=== PATIENT | male | born 1965 | race Caucasian/White ===

== ENCOUNTER 2018-11-04 22:11 | Observation (INO) ==
[2018-11-04 22:59] LABS: Basophils # 0.1 K/mcL (0.0-0.2); Basophils % 0.6 %; Eosinophils # 0.5 K/mcL (0.0-0.6); Eosinophils % 4.7 %; Hematocrit 44.5 % (37.5-50.1); Hemoglobin 15.7 g/dL (12.9-16.9); Immature Granulocytes % 0.3 % (0-4); Lymphocytes # 2.6 K/mcL (0.6-4.6); Lymphocytes % 26.3 %; Mean Corpuscular HGB Conc 35.3 g/dL (31.6-35.5); Mean Corpuscular Hemoglobin 32.4 pg (28.0-33.3); Mean Corpuscular Volume 91.8 fL (83.0-100.0); Mean Platelet Volume 10.9 fL (9.4-12.4); Monocytes # 1.1 K/mcL (0.0-1.3); Monocytes % 11.4 %; Neutrophils # 5.6 K/mcL (1.6-8.9); Platelet Count 177 K/mcL (140-400); Red Blood Count 4.85 M/mcL (4.19-5.50); Segmented Neutrophils % 56.7 %
[2018-11-04] MEDS ORDERED: Ipratropium/Albuterol Neb 3 ML IH ONE (23:39)
--- NOTE | 2018-11-04 23:42 | Emergency Department Note ---
Disposition Clinical Impression: SOB (shortness of breath), PVC (premature ventricular contraction), Fatigue Disposition: Admitted As Inpatient Condition: Good Forms: ED Satisfaction Letter Time of Disposition: 00:35 Arrhythmia/Palpitations HPI - General Chief Complaint: ED Arrhythmia/Palpitations Stated Complaint: heart palpatations macy Time Seen by Provider: 11/04/18 23:19 Source: patient Limitations: no limitations Nursing Notes Reviewed: Yes Vital Signs Reviewed: Yes - History of Present Illness HPI Narrative: 53-year-old male in presented to the emergency room for shortness of breath and palpitations. States he was out having dinner this evening and did not feel well. States he started feeling shortness of breath. [place] like he could not catch his breath at times. Never really had any true chest pain. He has no coronary history. He states he has been fatigued for the past week or so. Has not felt himself. He denies any fevers. He does admit to a slight cough. No lower leg pain or swelling. No history of DVT or PE. - Related Data Allergies Allergy/AdvReac Type Severity Reaction Status Date / Time No Known Allergies Allergy Verified 11/04/18 22:24 All systems ED: reviewed and negative except as stated. Constitutional: Reports: as per HPI, weakness Eyes: Reports: as per HPI ENT ED: Reports: as per HPI Cardiovascular: Reports: chest pain, palpitations, dyspnea on exertion Respiratory: Reports: cough, dyspnea Gastrointestinal: Reports: as per HPI Genitourinary: Reports: as per HPI Musculoskeletal: Reports: as per HPI Integumentary: Reports: as per HPI Neurological: Reports: as per HPI Psychiatric: Reports: as per HPI Endocrine: Reports: fatigue Hematological/Lymphatic: Reports: as per HPI Allergic/Immunologic: Reports: as per HPI Past Medical History - Past Medical History Medical history: Reports: asthma, hyperlipidemia Psychiatric history: Reports: anxiety - Social History Smoking Status: Never smoker Alcohol use: Reports: occasionally Drug use: Reports: none Physical Exam HEENT: Head atraumatic normocephalic. Pharynx clear with no exudates. Oral mucosa moist. Uvula midline. TMs clear bilaterally. Trachea midline. No lymphadenopathy. Heart: Regular rate and rhythm. Normal S1 and S2. No gallops, rubs, or murmurs. Lungs: Patient has some wheezing heard in the right lower lobe. Good air exchange. Abdomen: Soft nontender nondistended. Positive bowel sounds. No peritoneal signs. Extremities: No evidence of cyanosis clubbing or edema. Neuro: Cranial nerves II through XII grossly intact. No focal motor or sensory deficits. Speech is clear. Skin: Normal color. dry. Psych: normal mentation. - General Limitations: no limitations General appearance: alert Course Vital Signs Temperature 97.9 F 11/04/18 22:22 Pulse Rate 82 11/04/18 22:22 Respiratory Rate 21 11/04/18 22:22 Blood Pressure 125/83 11/04/18 22:22 O2 Sat by Pulse Oximetry 96 11/04/18 22:22 Temperature 97.9 F 11/04/18 23:15 Pulse Rate 82 11/04/18 23:15 Respiratory Rate 21 11/04/18 23:15 Blood Pressure 125/83 11/04/18 23:15 O2 Sat by Pulse Oximetry 96 11/04/18 23:15 Oxygen Delivery Oxygen Delivery Room Air Arrhythmia/Palpitations - MDM Narrative Medical decision making narrative: In review of the patient's workup everything came back unremarkable. Based on the story we will admit him to the hospital for cardiac evaluation and workup. I feel he would benefit from seeing cardiology. Possible stress test and I feel the need for this as he describes himself being extremely fatigued with this increasing dyspnea and states he just has not felt well. He states others as described him as looking yang in color. - Medical Records Medical records reviewed: Yes I reviewed the patient's medical records. - Lab Data Lab results reviewed: Yes I reviewed the patient's lab results. Result diagrams: 11/04/18 22:44 11/04/18 22:44 Lab Results 11/04/18 11/04/18 11/04/18 Range/Units 22:44 22:44 22:44 WBC 9.8 (4.3-11.1) K/mcL RBC 4.85 (4.19-5.50) M/mcL Hgb 15.7 (12.9-16.9) g/dL Hct 44.5 (37.5-50.1) % MCV 91.8 (83.0-100.0) fL MCH 32.4 (28.0-33.3) pg MCHC 35.3 (31.6-35.5) g/dL RDW 12.0 (11.5-14.5) % Plt Count 177 (140-400) K/mcL MPV 10.9 (9.4-12.4) fL Immature Gran % 0.3 (0-4) % Seg Neutrophils % 56.7 % Lymphocytes % 26.3 % Monocytes % 11.4 % Eosinophils % 4.7 % Basophils % 0.6 % Neutrophils # 5.6 (1.6-8.9) K/mcL Lymphocytes # 2.6 (0.6-4.6) K/mcL Monocytes # 1.1 (0.0-1.3) K/mcL Eosinophils # 0.5 (0.0-0.6) K/mcL Basophils # 0.1 (0.0-0.2) K/mcL Sodium 141 (136-145) mEq/L Potassium 3.7 (3.5-5.1) mEq/L Chloride 105 (98-107) mEq/L Carbon Dioxide 25 (23-29) mEq/L BUN 17 (6-20) mg/dL Creatinine 1.22 (0.70-1.30) mg/dL Est GFR ( Amer) > 60 (> 60) Est GFR (Non-Af Amer) > 60 (> 60) BUN/Creatinine Ratio 14 (6-26) Glucose 96 (70-105) mg/dL Calculated Osmolality 293 (280-300) Lactic Acid 1.7 (0.5-2.2) mmol/L Calcium 9.4 (8.6-10.3) mg/dL Troponin I < 0.03 (< 0.04) ng/mL B-Natriuretic Peptide (Less than 100) pg/mL TSH 4.097 (0.340-5.600) mcIU/mL 11/04/18 Range/Units 22:44 WBC (4.3-11.1) K/mcL RBC (4.19-5.50) M/mcL Hgb (12.9-16.9) g/dL Hct (37.5-50.1) % MCV (83.0-100.0) fL MCH (28.0-33.3) pg MCHC (31.6-35.5) g/dL RDW (11.5-14.5) % Plt Count (140-400) K/mcL MPV (9.4-12.4) fL Immature Gran % (0-4) % Seg Neutrophils % % Lymphocytes % % Monocytes % % Eosinophils % % Basophils % % Neutrophils # (1.6-8.9) K/mcL Lymphocytes # (0.6-4.6) K/mcL Monocytes # (0.0-1.3) K/mcL Eosinophils # (0.0-0.6) K/mcL Basophils # (0.0-0.2) K/mcL Sodium (136-145) mEq/L Potassium (3.5-5.1) mEq/L Chloride (98-107) mEq/L Carbon Dioxide (23-29) mEq/L BUN (6-20) mg/dL Creatinine (0.70-1.30) mg/dL Est GFR ( Amer) (> 60) Est GFR (Non-Af Amer) (> 60) BUN/Creatinine Ratio (6-26) Glucose (70-105) mg/dL Calculated Osmolality (280-300) Lactic Acid (0.5-2.2) mmol/L Calcium (8.6-10.3) mg/dL Troponin I (< 0.04) ng/mL B-Natriuretic Peptide 57 (Less than 100) pg/mL TSH (0.340-5.600) mcIU/mL - Radiology Data Radiology results reviewed: Yes I reviewed the patient's radiology results. - EKG Data EKG attestation: Yes I reviewed and interpreted this EKG. EKG results narrative: EKG shows a rate of 80. Normal sinus rhythm. Left axis deviation. [place] interval 143. QRS 94. QTC 412. No signs of acute ischemia. There is 1 PVC present.
[2018-11-04 23:58] LABS: Chloride 105 mEq/L (98-107); Potassium 3.7 mEq/L (3.5-5.1); Sodium 141 mEq/L (136-145)
[2018-11-04 23:59] LABS: BUN/Creatinine Ratio 14 (6-26); Blood Urea Nitrogen 17 mg/dL (6-20); Calcium 9.4 mg/dL (8.6-10.3); Carbon Dioxide 25 mEq/L (23-29); Glucose 96 mg/dL (70-105); Osmolality,Calculated 293 (280-300); Thyroid Stimulating Hormone 4.097 mcIU/mL (0.340-5.600); Troponin I < 0.03 ng/mL (< 0.04); eGFR For Non-African Americans > 60 (> 60)
[2018-11-05] MEDS ORDERED: Aspirin 325 MG TABLET PO ONE (00:31)
[2018-11-05] MEDS ORDERED: Acetaminophen 325 MG TABLET PO PRN (01:54)
[2018-11-05] MEDS ORDERED: *HR* HYDROcodone/Acet 5/325 mg TABLET PO PRN (01:54)
[2018-11-05] MEDS ORDERED: Naloxone 0.4 MG/ML INJ IVP PRN (01:54)
[2018-11-05] MEDS ORDERED: *HR* Morphine 2 MG/ML SYRINGE IVP PRN (02:49)
[2018-11-05] MEDS ORDERED: Nitroglycerin 0.4 MG TAB.SUBL SL PRN (02:50)
[2018-11-05] MEDS ORDERED: GI Cocktail 40 ML EACH PO ONE (02:50)
--- NOTE | 2018-11-05 03:01 | Internal Med History&Physical ---
Date of Encounter: 11/05/18 Time of Encounter: 01:00 Internal Medicine - H&P: HPI Chief complaint: Heart Palpitations/SOB Admitted From: Emergency Dept Plans for Post Hospital Care: Home History of present illness: Mr. Milan is a 53 year old male w/PMH of asthma, HLD, and anxiety/depression presents from the ED w/CC of heart palpitations and SOB that began last night at approximately 5 pm following dinner. Pt. reports that for the past several weeks he has been unusually tired and generally weak. No alleviating or aggravating factors. Patient states he felt flutter in his chest during event tonight but denies any diaphoresis, nausea, or vomiting. Patient states he used his rescue inhaler which helped briefly. Patient reports being on a statin since age 32 and had a stress test at the age of 42 which was unremarkable. Pt. reports feeling of acid reflux recently but denies taking a PPI. Denies recent cardiac workup, cardiac history, history of DVT or PE, recent illness, fever, chills, nausea, vomiting, changes in vision, headache, unusual bleeding, abdominal pain, cough, chest congestion, diarrhea, constipation, dizziness, lightheadedness, numbness, tingling, pre-syncope, or syncope. Past Med Surg Social Fam HX - Past Medical History Source: patient, old records reviewed Medical history: asthma, hyperlipidemia Psychiatric history: anxiety, depression - Social History Smoking Status: Never smoker Smokeless Tobacco Status: No Alcohol use: occasionally Drug use: none Occupational status: employed Current living situation: Home, With Family Activity Level: Independent ambulation, Very active Recent Out of Country Travel Within the Last 8 Weeks: No Exposure or Possible Exposure to Illness During Travel: No - Family History Grandfather Race: Family Member Ethnicity: Non- Living Status: Age at : 80 Cause of : [place] Hx Family Cardiac Disorders: Yes ([place]) Grandmother Race: Family Member Ethnicity: Non- Living Status: Age at : 80 Cause of : CVA Hx Family Cardiac Disorders: Yes (CVA) Hx Family Neurologic Disorders: Yes (CVA) Father Race: Family Member Ethnicity: Non- Living Status: Still Living Hx Family Cardiac Disorders: Yes (HLD, HTN) Hx Family Cancer: Yes (Prostate cancer, melanoma) Mother Race: Family Member Ethnicity: Non- Living Status: Still Living Hx Family Cardiac Disorders: Yes (HLD, HTN) Brother Race: Family Member Ethnicity: Non- Living Status: Still Living Hx Family Medical Disorders: No Sister Race: Family Member Ethnicity: Non- Living Status: Still Living Hx Family Medical Disorders: No Internal Medicine - H&P: Meds Albuterol Sulfate 11/05/18 [History] Alprazolam [Xanax] 2 mg PO PRN 11/05/18 [History] Escitalopram [Lexapro] 20 mg PO DAILY 11/05/18 [History] Fluticasone/Salmeterol [Advair 250-50 Diskus] 1 each IH 11/05/18 [History] Montelukast [Singulair] 10 mg PO DAILY 11/05/18 [History] Rosuvastatin Calcium [Crestor] 10 mg PO DAILY 11/05/18 [History] Vitamin D 5,000 unit PO DAILY 11/05/18 [History] Allergy/AdvReac Type Severity Reaction Status Date / Time No Known Allergies Allergy Verified 11/04/18 22:24 All Systems PM: A 10-system review of systems was performed and is negative for pertinent findings except as documented above in the HPI. - Constitutional Constitutional: as per HPI, fatigue, weakness, no chills, no fever(s), no night sweats - EENT Eyes: no change in vision, no discharge, no pain, no photophobia Ears: no ear discharge, no ear pain, no tinnitus Nose, mouth and throat: no dysphagia, no nasal discharge, no neck pain, no sore throat - Breasts Breasts: as per HPI - Cardiovascular Cardiovascular ROS IM: as per HPI, dyspnea, dyspnea on exertion, irregular heart rhythm, palpitations, no chest pain, no diaphoresis, no lightheadedness, no syncope - Respiratory Respiratory: as per HPI, dyspnea, dyspnea on exertion, no cough, no wheezing, no excessive phlegm production - Gastrointestinal Gastrointestinal: as per HPI, heartburn, no abdominal pain, no diarrhea, no hematemesis, no hematochezia, no melena, no nausea, no vomiting - Genitourinary Genitourinary ROS male: as per HPI - Musculoskeletal Musculoskeletal ROS IM: no numbness, no tingling - Integumentary Integumentary IM: no rash, no unusual bruising - Neurological Neurological ROS: as per HPI, weakness, no confusion, no convulsions, no focal weakness, no numbness, no tingling, no tremor(s) - Psychiatric Psychiatric: as per HPI - Endocrine Endocrine IM: as per HPI - Hematologic/Lymphatic Hematologic/Lymphatic: no easy bruising - Allergic/Immunologic Allergic/Immunologic: as per HPI - Constitutional Vitals: Temp Pulse Resp BP Pulse Ox 98.2 F 60 16 115/77 94 11/05/18 02:47 11/05/18 02:47 11/05/18 02:47 11/05/18 02:47 11/05/18 02:47 General appearance: Present: cooperative, A&O X 3, pleasant, no acute distress, obese, answers questions appropriately Exam: Patient examined at bedside. Patient resting in bed and in no apparent distr ess. Patient reports occasional fluttering in chest and generalized feeling of fatigue and weakness. Denies actual chest pain, SOB, or any other symptoms/complaints at this time. VS: 97.9F temp, HR 60, RR 21, BP 125/83, SpO2 97% on RA. - Head Head exam: Present: atraumatic, normocephalic - Eye Eye exam: Present: PERRL, conjuntiva pink, sclera anicteric Pupils: Present: PERRL - ENT ENT exam: Present: normal exam - Neck Neck exam general surgery: Present: normal inspection, supple, trachea midline. Absent: lymphadenopathy - Respiratory Respiratory exam: Present: CTAB. Absent: accessory muscle use, rales, rhonchi, wheezes - Cardiovascular Cardiovascular exam: Present: RRR, +S1, +S2. Absent: diastolic murmur, gallop, rubs, systolic murmur - GI/Abdominal GI/Abdominal exam: Present: normal bowel sounds, soft, no peritoneal signs. Absent: distended, tenderness - Rectal Rectal exam: Present: deferred - Additional comments: exam deferred. - Extremities Exam Extremities exam: Present: warm, radial pulses palpable and symmetrical. Absent: calf tenderness, cyanotic, pedal edema - Back Exam Back exam: Present: normal inspection - Neurological Exam Neurological exam: Present: alert, CN II-XII intact, oriented X3, no focal deficits. Absent: pronater drift, facial droop, speech deficit - Psychiatric Psychiatric exam: Present: normal affect, normal mood - Skin Skin exam: Present: dry, intact Internal Med - H&P Results - Labs CBC & Chem 7: 11/04/18 22:44 11/04/18 22:44 Labs: Short CBC 11/04/18 Range/Units 22:44 WBC 9.8 (4.3-11.1) K/mcL Hgb 15.7 (12.9-16.9) g/dL Hct 44.5 (37.5-50.1) % Plt Count 177 (140-400) K/mcL Neutrophils # 5.6 (1.6-8.9) K/mcL BMP 11/04/18 22:44 Sodium 141 Potassium 3.7 Chloride 105 Carbon Dioxide 25 BUN 17 Creatinine 1.22 Glucose 96 Calcium 9.4 Cardiac Enzymes 11/04/18 Range/Units 22:44 Troponin I < 0.03 (< 0.04) ng/mL - Impressions ITS Impressions Chest X-Ray 11/04/18 22:24 IMPRESSION: Cardiomegaly, otherwise, no acute abnormality seen in the chest D/ / Ant Zimmerman MD / Atn Zimmerman MD Interpreting Provider: Ant Zimmerman MD - Diagnostic Studies Chest x-ray Additional comments: Impressions Chest X-Ray 11/04/18 22:24 IMPRESSION: Cardiomegaly, otherwise, no acute abnormality seen in the chest D/ / Ant Zimmerman MD / Ant Zimmerman MD Interpreting Provider: Ant Zimmerman MD - Assessment and plan (1) Heart palpitations Current Visit: Yes Status: Acute Assessment and plan: Pt. reports he can feel a flutter in his chest occasionally and that heart palpitations and SOB began last night at approximately 5 pm following dinner. Pt. reports that for the past several weeks he has been unusually tired and generally weak. Patient states he felt flutter in his chest during event tonight but denies any diaphoresis, nausea, or vomiting. Patient states he used his rescue inhaler which helped briefly. Patient reports being on a statin since age 32 and had a stress test at the age of 42 which was unremarkable. No diagnosed hx of atrial flutter or Afib. CXR shows cardiomegaly. EKG shows sinus rhythm with occasional ventricular premature complexes and possible left atrial enlargement. Cardiac monitoring. ASA. Echocardiogram. Initial troponin <0.03. Trending. 80 mg Lipitor ONCE. SL nitro PRN. IVP morphine ordered for CP. NPO since admission for exercise stress test later today if troponins remain WNL. Discussed doing stress test today w/pt. who is amenable and wishes to proceed. Lipid panel in a.m. labs. Pt. is high risk for cardiac event and further morbidity based on current sx, generalized weakness for the past several weeks that has become progressively worse, hx of CAD since the age of 32, cardiomegaly of unknown etiology as seen on CXR, familial hx of CAD and [place]/CVA; and risk factors of HLD and obesity. Observation. (2) PVC (premature ventricular contraction) Current Visit: Yes Status: Acute Assessment and plan: Acute PVCs. Pt. reports he can feel a flutter in his chest occasionally. No diagnosed hx of atrial flutter or Afib. CXR shows cardiomegaly. EKG shows sinus rhythm with occasional ventricular premature complexes and possible left atrial enlargement. Cardiac monitoring. ASA. Echocardiogram. (3) Generalized weakness Current Visit: Yes Status: Acute Assessment and plan: Acute on chronic generalized weakness for the past several weeks that the pt. reports as worsening. States he always feels tired. CXR shows cardiomegaly. No recent cardiac w/u. Echocardiogram to assess for EF. Falls precautions and up with assist. (4) SOB (shortness of breath) Current Visit: Yes Status: Acute Assessment and plan: Acute SOB accompanying heart palpitations. Supplemental O2 w/titration and SpO2 monitoring PRN. Continue pts. inhalers for asthma once verified. If breathing txs indicated, use Xopenex d/t pts. palpitations/PVCs. (5) HLD (hyperlipidemia) Current Visit: Yes Status: Chronic Assessment and plan: Hx of chronic HLD. Lipid panel in a.m. labs. 80 mg Lipitor ONCE d/t current cardiac sx. Continue pts. Crestor on Sunday. Pt. reports he has been on a statin since the age of 32. Qualifiers: Hyperlipidemia type: pure hypercholesterolemia Qualified Code(s): E78.00 - Pure hypercholesterolemia, unspecified; E78.0 - Pure hypercholesterolemia (6) Asthma Current Visit: Yes Status: Chronic Assessment and plan: Hx of chronic asthma that is mild and intermittent. Continue pts. inhalers once confirmed. If pt. requires breathing txs for SOB, Xopenex to be ordered d/t pts. current palpitations and PVCs. Qualifiers: Asthma severity: mild Asthma persistence: intermittent Asthma complication type: uncomplicated Qualified Code(s): J45.20 - Mild intermittent asthma, uncomplicated (7) Anxiety and depression Current Visit: Yes Status: Chronic Assessment and plan: Hx of chronic anxiety and depression. Continue pts. Lexapro. Pt. states he takes his Xanax PRN for symptoms. Will continue as well once confirmed. (8) DVT prophylaxis Current Visit: Yes Status: Acute Assessment and plan: Heparin 5,000 units SQ Q8HR for DVT prophylaxis. Monitor pt. for signs of bleeding. - Time Spent With Patient Total time spent is greater than 50% in coordination of care (as documented) at patient's floor/unit and/or counseling patient: Greater than 35 minutes
[2018-11-05 06:01] LABS: Basophils # 0.1 K/mcL (0.0-0.2); Basophils % 0.7 %; Eosinophils # 0.4 K/mcL (0.0-0.6); Eosinophils % 6.4 %; Hematocrit 42.7 % (37.5-50.1); Hemoglobin 14.9 g/dL (12.9-16.9); Immature Granulocytes % 0.3 % (0-4); Lymphocytes # 2.4 K/mcL (0.6-4.6); Lymphocytes % 34.4 %; Mean Corpuscular HGB Conc 34.9 g/dL (31.6-35.5); Mean Corpuscular Hemoglobin 32.2 pg (28.0-33.3); Mean Corpuscular Volume 92.2 fL (83.0-100.0); Mean Platelet Volume 10.7 fL (9.4-12.4); Monocytes # 0.7 K/mcL (0.0-1.3); Monocytes % 10.6 %; Neutrophils # 3.3 K/mcL (1.6-8.9); Platelet Count 151 K/mcL (140-400); Red Blood Count 4.63 M/mcL (4.19-5.50); Red Cell Distribution Width 12.3 % (11.5-14.5); Segmented Neutrophils % 47.6 %
[2018-11-05] MEDS: *HR* Heparin 5,000 UNIT/ML VIAL SQ SCH ×3 (06:02→15:16)
[2018-11-05 06:22] LABS: Alanine Aminotransferase 30 Units/L (7-52); Albumin/Globulin Ratio 1.8 (1.1-2.2); Alkaline Phosphatase 51 Units/L (34-104); Aspartate Amino Transferase 19 Units/L (13-39); BUN/Creatinine Ratio 17 (6-26); Bilirubin,Total 0.5 mg/dL (0.3-1.0); Blood Urea Nitrogen 18 mg/dL (6-20); Carbon Dioxide 27 mEq/L (23-29); Chloride 106 mEq/L (98-107); Globulin 2.2 g/dL (2.4-3.5); Glucose 88 mg/dL (70-105); Magnesium 2.1 mg/dL (1.6-2.6); Osmolality,Calculated 289 (280-300); Potassium 3.9 mEq/L (3.5-5.1); Sodium 139 mEq/L (136-145); Total Protein 6.2 g/dL (6.4-8.9); Triglycerides 216 mg/dL (< 150); eGFR For Non-African Americans > 60 (> 60)
[2018-11-05 06:23] LABS: Chol/HDL Ratio 3.3 (0-4.9); Cholesterol 176 mg/dL (< 200); HDL Cholesterol 53 mg/dL (40-59); LDL Cholesterol,Calculated 80 mg/dL (0-99)
[2018-11-05 06:44] LABS: Estimated Average Glucose 114 mg/dl; Hemoglobin A1C 5.6 %
[2018-11-05] MEDS ORDERED: Cholecalciferol (D-3) 1,000 UNIT TABLET PO SCH (09:00)
[2018-11-05] MEDS ORDERED: Aspirin Enteric Coated 81 MG Tablet PO SCH (09:00)
[2018-11-05 16:50] VITALS: BP 144/96
[2018-11-05] MEDS ORDERED: Isovue-370 500 ML INFUS..BTL IVP ONE (17:07)
--- NOTE | 2018-11-05 17:55 | Electrocardiograph Report ---
[address] [place], [place] [address] Test Date: 2018-11-04 Pat Name: Joseph Milan Department: 104 Room: [facility] Gender: M [employer] Operator Head: : 1965 Requested By: Michael French Order Number: [id number] Reading MD: Linda Ruiz Measurements Intervals [place] Rate: 80 P: 52 [place]: 143 QRS: 1 QRSD: 94 T: 30 QT: 375 QTc: 412 Interpretive Statements SINUS RHYTHM WITH OCCASIONAL VENTRICULAR PREMATURE COMPLEXES POSSIBLE LEFT ATRIAL ENLARGEMENT Electronically Signed On 11-05-2018 17:53:18 EST by Linda Ruiz
--- NOTE | 2018-11-05 18:07 | Discharge Summary ---
Orders not resulted at time of discharge: Pending orders 11/05/18 05:41 NM janna perf SPECT multi [NM] Routine 11/06/18 04:00 Complete Blood Count [HEME] AM 0400 Comprehensive Metabolic Panel AM 0400 11/07/18 04:00 Complete Blood Count [HEME] AM 0400 Comprehensive Metabolic Panel AM 0400 Date of Encounter: 11/05/18 Time of Encounter: 11:00 - Discharge Diagnosis (1) SOB (shortness of breath) Priority: Primary Status: Acute (2) PVC (premature ventricular contraction) Priority: Secondary Status: Acute (3) Heart palpitations Priority: Primary Status: Acute (4) Generalized weakness Priority: Secondary Status: Acute (5) HLD (hyperlipidemia) Priority: Secondary Status: Chronic Qualifiers: Hyperlipidemia type: pure hypercholesterolemia Qualified Code(s): E78.00 - Pure hypercholesterolemia, unspecified; E78.0 - Pure hypercholesterolemia (6) Asthma Priority: Secondary Status: Chronic Qualifiers: Asthma severity: mild Asthma persistence: intermittent Asthma complication type: uncomplicated Qualified Code(s): J45.20 - Mild intermittent asthma, uncomplicated (7) Anxiety and depression Priority: Secondary Status: Chronic Hospital course: Patient is a 53-year-old male past medical history significant for asthma, HLD, and anxiety/depression presents from the ER complaining of heart palpitations and SOB. Patient reported that his symptoms began the night prior to admission. During patients hospital stay he was monitor on telemetry and nuclear medicine stress test was done which was negative. Echocardiogram was done which showed LVEF of 60% and normal right ventricular structure and function. CTA was done and unremarkable for dissection aneurysm or hemorrhage. Patient will be discharged to follow-up with primary care provider for consideration for event or Holter monitoring. - Time Spent with Patient Total time spent providing and/or coordinating discharge services: Less than 30 minutes - Discharge Medications Home Medications: Albuterol Sulfate 11/05/18 [History] Alprazolam [Xanax] 2 mg PO PRN 11/05/18 [History] Escitalopram [Lexapro] 20 mg PO DAILY 11/05/18 [History] Fluticasone/Salmeterol [Advair 250-50 Diskus] 1 each IH 11/05/18 [History] Montelukast [Singulair] 10 mg PO DAILY 11/05/18 [History] Rosuvastatin Calcium [Crestor] 10 mg PO DAILY 11/05/18 [History] Vitamin D 5,000 unit PO DAILY 11/05/18 [History] Allergies/Adverse Reactions: Allergy/AdvReac Type Severity Reaction Status Date / Time No Known Allergies Allergy Verified 11/04/18 22:24 Date of admission: 11/05/18 01:07 Primary care physician: PCP NONE - Constitutional Vitals: Temp Pulse Resp BP Pulse Ox 97.9 F 106 15 144/96 93 11/05/18 16:49 11/05/18 16:49 11/05/18 16:49 11/05/18 16:49 11/05/18 16:49 General appearance: Present: cooperative, A&O X 3, pleasant, no acute distress, obese, answers questions appropriately Exam: Gen.: Nonacute distress, alert and oriented 3 Cardiovascular: Normal S1 and S2 regular rate rhythm no murmurs rubs or gallops Skin: Normal color - Patient Status Disposition: Home, Self-Care Condition: Good - Discharge Instructions Follow Up With: NONE,PCP [Primary Care Provider] -
== END 2018-11-05 18:30 | disposition home or self-care (01) ==
LOC: EMEROOARM 22:11 → 3NENU 22:11 → SUATTDRO 11-05 01:07 → 3NENU 11-05 01:27
PROVIDERS: ADMIT Internal Medicine; ATTEND Hospitalist